=== PATIENT | male | born 1935 | race Caucasian/White ===

== ENCOUNTER 2019-01-13 19:16 | Inpatient (IN) | payer MEDICARE, OTHER ==
[2019-01-13] MEDS: VANCOMYCIN 1 GM (PMX) 250 ML IVPB (19:30)
[2019-01-13] MEDS: SODIUM CHLORIDE 0.9% 1L BAG IV* (19:40)
[2019-01-13] MEDS: ACETAMINOPHEN 325 MG TAB PO (19:41)
[2019-01-13] MEDS: CEFEPIME 2GM/50 ML (PMX) 50 ML IVPB (19:41)
[2019-01-13 19:44] LABS: ABNORMAL IP MESSAGE 1; HEMOGLOBIN 10.3 g/dl (14.0-18.0); MEAN CORPUSCULAR HEMOGLOBIN 26.9 pg (29.0-33.0); MEAN CORPUSCULAR HGB CONC 31.2 g/dl (32.0-37.0); MEAN CORPUSCULAR VOLUME 86.2 fl (82.0-101.0); MEAN PLATELET VOLUME 10.7 fl (7.4-10.4); PLATELET COUNT 395 10^3/UL (140-415); POSITIVE DIFF @See below; RED BLOOD COUNT 3.83 10^6/ul (4.70-6.10); RED CELL DISTRIBUTION WIDTH 19.2 % (11.5-14.5)
[2019-01-13 19:44] LABS: WHITE BLOOD COUNT 31.4 10^3/ul (4.8-10.8)
[2019-01-13 19:49] LABS: ADD MAN DIFF? YES
[2019-01-13 19:59] LABS: INR 0.92; PROTIME 12.5 Sec (11.9-14.9)
[2019-01-13 20:00] LABS: PARTIAL THROMBOPLASTIN TIME 33.3 Sec (23.0-35.0)
[2019-01-13 20:02] LABS: ALANINE AMINOTRANSFERASE 18 IU/L (13-69); ALBUMIN/GLOBULIN RATIO 0.86; ALKALINE PHOSPHATASE 145 IU/L (42-121); ANION GAP 12 (5-13); ASPARTATE AMINO TRANSFERASE 39 IU/L (15-46); BILIRUBIN,INDIRECT 0.3 mg/dl (0-1.1); BILIRUBIN,TOTAL 0.3 mg/dl (0.2-1.3); BLOOD UREA NITROGEN 27 mg/dl (7-20); CALCIUM 9.6 mg/dl (8.4-10.2); CARBON DIOXIDE 29 mmol/L (21-31); CHLORIDE 94 mmol/L (97-110); GLUCOSE 158 mg/dl (70-220); POTASSIUM 4.6 mmol/L (3.5-5.1); SODIUM 135 mmol/L (135-144); TOTAL PROTEIN 8.6 g/dl (6.1-8.1)
[2019-01-13 20:13] LABS: TROPONIN-I < 0.012 ng/ml (0.000-0.120)
[2019-01-13 20:31] LABS: ADD UMIC YES; UR ASCORBIC ACID 40 mg/dL (NEGATIVE); UR BACTERIA FEW /HPF (NONE SEEN); UR BILIRUBIN (Dip) NEGATIVE (NEGATIVE); UR BLOOD (Dip) NEGATIVE (NEGATIVE); UR BUDDING YEAST FEW /HPF (NONE SEEN); UR CLARITY CLEAR (CLEAR); UR COLOR YELLOW (YELLOW); UR GLUCOSE (Dip) NEGATIVE (NEGATIVE); UR KETONES (Dip) NEGATIVE (NEGATIVE); UR LEUKOCYTE ESTERASE (Dip) 1+ Leu/ul (NEGATIVE); UR NITRITE (Dip) NEGATIVE (NEGATIVE); UR RBC 4 /HPF (0-5); UR SPECIFIC GRAVITY (Dip) 1.009 (1.003-1.030); UR TOTAL PROTEIN (Dip) NEGATIVE (NEGATIVE); UR UROBILINOGEN (Dip) NEGATIVE (NEGATIVE); UR WBC 13 /HPF (0-5)
[2019-01-13 20:38] LABS: ANISOCYTOSIS 2+ (0-0); BAND NEUTROPHILS #M 3.1 10^3/ul (0.0-0.6); BAND NEUTROPHILS % (M) 10 % (0-4); EOSINOPHILS % (M) 11 % (0-7); LYMPHOCYTES #M 1.5 10^3/ul (0.8-2.9); LYMPHOCYTES % (M) 5 % (15-51); MICROCYTOSIS 2+ (0-0); MONOCYTE #M 0.3 10^3/ul (0.3-0.9); MONOCYTES % (M) 1 % (0-11); PLATELET ESTIMATE NORMAL; POLYCHROMASIA 1+ (0-0); SEG NEUT #M 23.9 10^3/ul (1.6-7.5); SEGMENTED NEUTROPHILS (M) % 73 % (39-77); SMUDGE%M 36 % (0-0)
[2019-01-13] MEDS ORDERED: ACETAMINOPHEN 325 MG TAB PO (22:00)
[2019-01-13] MEDS ORDERED: ONDANSETRON 4 MG INJ IV (22:00)
[2019-01-13 22:16] LABS: LACTIC ACID 1.5 mmol/L (0.5-2.0)
[2019-01-14] MEDS ORDERED: GLUCAGON 1 MG INJ IM (00:30)
[2019-01-14] MEDS ORDERED: GLUCOSE GEL 15 GRAM TUBE BUCCAL (00:30)
[2019-01-14] MEDS ORDERED: GLUCOSE GEL 15 GRAM TUBE PO ×2 (00:30)
[2019-01-14] MEDS ORDERED: PENDING SANTYL ORDER FOR WOUND CARE XX (00:30)
[2019-01-14] MEDS ORDERED: DEXTROSE 50% 50 ML SYRINGE IV ×2 (00:30)
[2019-01-14] MEDS: ACCU-CHEK XX (01:10)
[2019-01-14 01:36] LABS: LACTIC ACID 1.5 mmol/L (0.5-2.0)
[2019-01-14] MEDS: INSULIN ASPART [NOVOLOG] 3 ML PEN SC ×4 (06:00→18:00)
[2019-01-14] MEDS ORDERED: VANCOMYCIN IV PER PHARMACY XX (09:30)
[2019-01-14] MEDS: VANCOMYCIN 1 GM 250 ML IVPB (12:30)
[2019-01-14] MEDS: DUTASTERIDE 0.5 MG CAP PO (12:31)
[2019-01-14] MEDS: MULTIVITAMINS THERAPEUTIC TAB PO (12:31)
[2019-01-14] MEDS: DOCUSATE SODIUM 250 MG CAP PO ×2 (12:31→22:28)
[2019-01-14] MEDS: BACLOFEN 10 MG TAB PO ×2 (12:31→22:28)
[2019-01-14] MEDS: LANSOPRAZOLE 30 MG CAP PO ×2 (12:31→22:28)
[2019-01-14] MEDS: LEVETIRACETAM 500 MG TAB PO ×2 (12:31→22:28)
[2019-01-14] MEDS: AMLODIPINE 5 MG TAB PO (12:32)
[2019-01-14] MEDS: ASPIRIN (EC) 81 MG TAB PO (12:32)
[2019-01-14] MEDS: CEFTAZIDIME 1GM/50 ML (PMX) 50 ML IVPB ×2 (15:20→22:29)
[2019-01-15] MEDS: VANCOMYCIN 500 MG (PMX) 100 ML IVPB ×2 (01:14→12:15)
[2019-01-15] MEDS: ACCU-CHEK XX (02:00)
[2019-01-15] MEDS: INSULIN ASPART [NOVOLOG] 3 ML PEN SC ×4 (06:00→17:07)
[2019-01-15] MEDS: CEFTAZIDIME 1GM/50 ML (PMX) 50 ML IVPB ×2 (06:14→13:40)
[2019-01-15 07:11] LABS: ADD MAN DIFF? NO
[2019-01-15 07:16] LABS: HEMATOCRIT 29.4 % (42.0-52.0); HEMOGLOBIN 9.1 g/dl (14.0-18.0); MEAN CORPUSCULAR HEMOGLOBIN 26.3 pg (29.0-33.0); RED BLOOD COUNT 3.46 10^6/ul (4.70-6.10); RED CELL DISTRIBUTION WIDTH 18.9 % (11.5-14.5)
[2019-01-15 07:16] LABS: WHITE BLOOD COUNT 8.7 10^3/ul (4.8-10.8)
[2019-01-15 07:17] LABS: ABNORMAL IP MESSAGE 1; BASOPHILS % 0.5 % (0.0-2.0); EOSINOPHILS # 1.7 10^3/ul (0.0-0.5); EOSINOPHILS % 19.4 % (0.0-7.0); LYMPHOCYTES # 0.5 10^3/ul (0.8-2.9); LYMPHOCYTES % 5.8 % (15.0-51.0); MEAN PLATELET VOLUME 10.9 fl (7.4-10.4); MONOCYTE # 0.9 10^3/ul (0.3-0.9); MONOCYTES % 10.8 % (0.0-11.0); NEUTROPHIL # 5.5 10^3/ul (1.6-7.5); NEUTROPHILS % 62.8 % (39.0-77.0); PLATELET COUNT 322 10^3/UL (140-415); POSITIVE DIFF @See below
[2019-01-15 07:52] LABS: CHOLESTEROL 142 mg/dl (100-200)
[2019-01-15 07:52] LABS: CHOL/HDL RATIO 5.6 RATIO; HDL CHOLESTEROL 25 mg/dl (31-75); LDL CHOLESTEROL,CALCULATED 51 mg/dl; TRIGLYCERIDES 330 mg/dl (0-149)
[2019-01-15 07:54] LABS: ANION GAP 8 (5-13); BLOOD UREA NITROGEN 20 mg/dl (7-20); CALCIUM 8.7 mg/dl (8.4-10.2); CARBON DIOXIDE 30 mmol/L (21-31); CHLORIDE 100 mmol/L (97-110); CREATININE 0.32 mg/dl (0.61-1.24); GLUCOSE 149 mg/dl (70-220); MAGNESIUM 2.3 mg/dl (1.7-2.5); PHOSPHORUS 2.2 mg/dl (2.5-4.9); POTASSIUM 3.7 mmol/L (3.5-5.1); SODIUM 138 mmol/L (135-144)
[2019-01-15 08:04] LABS: B-TYPE NATRIURETIC PEPTIDE 2820 PG/ML (0-450)
[2019-01-15] MEDS: DUTASTERIDE 0.5 MG CAP PO (09:00)
[2019-01-15] MEDS: ASPIRIN (EC) 81 MG TAB PO (09:10)
[2019-01-15] MEDS: DOCUSATE SODIUM 250 MG CAP PO ×2 (09:10→22:19)
[2019-01-15] MEDS: BACLOFEN 10 MG TAB PO ×2 (09:10→22:20)
[2019-01-15] MEDS: LEVETIRACETAM 500 MG TAB PO ×2 (09:10→22:19)
[2019-01-15] MEDS: MULTIVITAMINS THERAPEUTIC TAB PO (09:10)
[2019-01-15] MEDS: LANSOPRAZOLE 30 MG CAP PO ×2 (09:10→22:20)
[2019-01-15] MEDS: AMLODIPINE 5 MG TAB PO (09:10)
[2019-01-15] MEDS: NEUTRA-PHOS 250 MG PACKET PO (11:36)
[2019-01-15] MEDS: BALSAM PERU/CASTOR OIL 60 GM TUBE TOP ×2 (13:46→22:20)
[2019-01-15] MEDS: FLUCONAZOLE 100 MG TAB PO (15:41)
[2019-01-16] MEDS: CEFTAZIDIME 1GM/50 ML (PMX) 50 ML IVPB ×4 (01:03→21:13)
[2019-01-16 01:16] LABS: VANCOMYCIN,TROUGH 15.9 ug/ml (10.0-20.0)
[2019-01-16] MEDS: ACCU-CHEK XX (02:00)
[2019-01-16] MEDS: VANCOMYCIN 500 MG (PMX) 100 ML IVPB ×2 (02:57→12:32)
[2019-01-16] MEDS: INSULIN ASPART [NOVOLOG] 3 ML PEN SC ×4 (06:00→17:30)
[2019-01-16] MEDS: DOCUSATE SODIUM 250 MG CAP PO ×2 (08:40→21:12)
[2019-01-16] MEDS: FLUCONAZOLE 100 MG TAB PO (08:41)
[2019-01-16] MEDS: BACLOFEN 10 MG TAB PO ×2 (08:41→21:13)
[2019-01-16] MEDS: DUTASTERIDE 0.5 MG CAP PO (08:41)
[2019-01-16] MEDS: AMLODIPINE 5 MG TAB PO (08:42)
[2019-01-16] MEDS: BALSAM PERU/CASTOR OIL 60 GM TUBE TOP ×2 (08:42→21:13)
[2019-01-16] MEDS: LANSOPRAZOLE 30 MG CAP PO ×2 (08:42→21:13)
[2019-01-16] MEDS: ASPIRIN (EC) 81 MG TAB PO (08:42)
[2019-01-16] MEDS: LEVETIRACETAM 500 MG TAB PO ×2 (08:42→21:12)
[2019-01-16] MEDS: MULTIVITAMINS THERAPEUTIC TAB PO (08:42)
[2019-01-16] MEDS: LISINOPRIL 20 MG TAB GTB (08:42)
[2019-01-16 08:44] LABS: ADD MAN DIFF? NO
[2019-01-16 08:46] LABS: ABNORMAL IP MESSAGE 1; BASOPHILS % 0.4 % (0.0-2.0); EOSINOPHILS # 1.8 10^3/ul (0.0-0.5); EOSINOPHILS % 17.2 % (0.0-7.0); HEMATOCRIT 30.4 % (42.0-52.0); HEMOGLOBIN 9.5 g/dl (14.0-18.0); LYMPHOCYTES # 0.5 10^3/ul (0.8-2.9); MEAN CORPUSCULAR HEMOGLOBIN 26.4 pg (29.0-33.0); MEAN CORPUSCULAR HGB CONC 31.3 g/dl (32.0-37.0); MEAN CORPUSCULAR VOLUME 84.4 fl (82.0-101.0); MEAN PLATELET VOLUME 11.3 fl (7.4-10.4); MONOCYTE # 1.1 10^3/ul (0.3-0.9); MONOCYTES % 10.7 % (0.0-11.0); NEUTROPHIL # 6.8 10^3/ul (1.6-7.5); NEUTROPHILS % 66.3 % (39.0-77.0); PLATELET COUNT 342 10^3/UL (140-415); POSITIVE DIFF @See below; RED CELL DISTRIBUTION WIDTH 18.7 % (11.5-14.5)
[2019-01-16 08:46] LABS: WHITE BLOOD COUNT 10.2 10^3/ul (4.8-10.8)
[2019-01-16 09:14] LABS: ANION GAP 8 (5-13); BLOOD UREA NITROGEN 18 mg/dl (7-20); CALCIUM 9.1 mg/dl (8.4-10.2); CARBON DIOXIDE 29 mmol/L (21-31); CHLORIDE 102 mmol/L (97-110); CREATININE 0.34 mg/dl (0.61-1.24); GLUCOSE 142 mg/dl (70-220); MAGNESIUM 2.2 mg/dl (1.7-2.5); PHOSPHORUS 2.3 mg/dl (2.5-4.9); POTASSIUM 3.7 mmol/L (3.5-5.1); SODIUM 139 mmol/L (135-144)
== END 2019-01-17 00:10 | DRG 871 ==
LOC: E/R 19:16 → TEL 22:45
DX: A41.9 Sepsis, unspecified organism (principal); L89.324 Pressure ulcer of left buttock, stage 4; L89.154 Pressure ulcer of sacral region, stage 4; J96.21 Acute and chronic respiratory failure with hypoxia; G92 Toxic encephalopathy; J69.0 Pneumonitis due to inhalation of food and vomit; L03.115 Cellulitis of right lower limb; N39.0 Urinary tract infection, site not specified; E11.9 Type 2 diabetes mellitus without complications; D64.9 Anemia, unspecified; Z93.1 Gastrostomy status; R13.10 Dysphagia, unspecified; F03.90 Unspecified dementia, unspecified severity, without behavioral disturbance, psychotic disturbance, mood disturbance, and anxiety; G40.909 Epilepsy, unspecified, not intractable, without status epilepticus; N40.0 Benign prostatic hyperplasia without lower urinary tract symptoms; I10 Essential (primary) hypertension; M62.838 Other muscle spasm; Z79.4 Long term (current) use of insulin; Z79.82 Long term (current) use of aspirin; Z86.73 Personal history of transient ischemic attack (TIA), and cerebral infarction without residual deficits
CPT/HCPCS: 36415; 70140; 71045; 80048; 80053; 80061; 80202; 81001; 82962; 83605; 83735; 83880; 84100; 84484; 85025; 85610; 85730; 87040-91; 87081; 87086; 87400; 93005; 93306; 96374; 96375; 99291-25

== ENCOUNTER 2019-05-28 09:51 | Inpatient (IN) | payer MEDICARE, OTHER ==
[2019-05-28 10:07] LABS: ADD MAN DIFF? NO
[2019-05-28 10:08] LABS: BASOPHIL # 0.1 10^3/ul (0.0-0.1); BASOPHILS % 0.6 % (0.0-2.0); EOSINOPHILS # 0.6 10^3/ul (0.0-0.5); HEMATOCRIT 33.5 % (42.0-52.0); HEMOGLOBIN 10.2 g/dl (14.0-18.0); LYMPHOCYTES # 0.7 10^3/ul (0.8-2.9); LYMPHOCYTES % 4.9 % (15.0-51.0); MEAN CORPUSCULAR HGB CONC 30.4 g/dl (32.0-37.0); MEAN PLATELET VOLUME 11.3 fl (7.4-10.4); MONOCYTE # 1.1 10^3/ul (0.3-0.9); NEUTROPHIL # 11.3 10^3/ul (1.6-7.5); NEUTROPHILS % 81.1 % (39.0-77.0); PLATELET COUNT 321 10^3/UL (140-415); RED BLOOD COUNT 3.64 10^6/ul (4.70-6.10); RED CELL DISTRIBUTION WIDTH 18.3 % (11.5-14.5)
[2019-05-28 10:08] LABS: WHITE BLOOD COUNT 13.9 10^3/ul (4.8-10.8)
[2019-05-28 10:25] LABS: ALANINE AMINOTRANSFERASE 37 IU/L (13-69); ALBUMIN 3.3 g/dl (3.3-4.9); ALBUMIN/GLOBULIN RATIO 0.82; ALKALINE PHOSPHATASE 111 IU/L (42-121); ANION GAP 6 (5-13); ASPARTATE AMINO TRANSFERASE 46 IU/L (15-46); BILIRUBIN,INDIRECT 0.4 mg/dl (0-1.1); BILIRUBIN,TOTAL 0.4 mg/dl (0.2-1.3); BLOOD UREA NITROGEN 53 mg/dl (7-20); CALCIUM 8.8 mg/dl (8.4-10.2); CARBON DIOXIDE 28 mmol/L (21-31); CHLORIDE 102 mmol/L (97-110); GLUCOSE 187 mg/dl (70-220); POTASSIUM 4.6 mmol/L (3.5-5.1); SODIUM 136 mmol/L (135-144); TOTAL PROTEIN 7.3 g/dl (6.1-8.1)
[2019-05-28 10:27] LABS: INR 0.97
[2019-05-28] MEDS: SODIUM CHLORIDE 0.9% 1L BAG IV* (10:31)
[2019-05-28] MEDS: CEFEPIME 2GM/50 ML (PMX) 50 ML IVPB (10:31)
[2019-05-28 10:32] LABS: PARTIAL THROMBOPLASTIN TIME 31.1 Sec (23.0-35.0)
[2019-05-28 10:36] LABS: TROPONIN-I < 0.012 ng/ml (0.000-0.120)
[2019-05-28] MEDS ORDERED: ACETAMINOPHEN 325 MG TAB PO (11:00)
[2019-05-28] MEDS ORDERED: ONDANSETRON 4 MG INJ IV (11:00)
[2019-05-28] MEDS: VANCOMYCIN 1 GM (PMX) 250 ML IVPB (11:32)
[2019-05-28 11:56] LABS: ADD UMIC YES; UR ASCORBIC ACID 40 mg/dL (NEGATIVE); UR BACTERIA FEW /HPF (NONE SEEN); UR BILIRUBIN (Dip) NEGATIVE (NEGATIVE); UR BLOOD (Dip) NEGATIVE (NEGATIVE); UR CLARITY SLIGHTLY CLOUDY (CLEAR); UR COLOR YELLOW (YELLOW); UR GLUCOSE (Dip) NEGATIVE (NEGATIVE); UR KETONES (Dip) NEGATIVE (NEGATIVE); UR LEUKOCYTE ESTERASE (Dip) NEGATIVE Leu/ul (NEGATIVE); UR MUCUS FEW /HPF (NONE SEEN); UR NITRITE (Dip) NEGATIVE (NEGATIVE); UR RBC 3 /HPF (0-5); UR SPECIFIC GRAVITY (Dip) 1.013 (1.003-1.030); UR SQUAMOUS EPITHELIAL CELL FEW /HPF (FEW); UR TOTAL PROTEIN (Dip) 1+ mg/dl (NEGATIVE); UR UROBILINOGEN (Dip) NEGATIVE (NEGATIVE); UR WBC 1 /HPF (0-5)
[2019-05-28 12:07] LABS: LACTIC ACID 1.5 mmol/L (0.5-2.0)
[2019-05-28] MEDS: PILOCARPINE 5 MG TAB PO (16:57)
[2019-05-28] MEDS: CLOBETASOL 0.05% 15 GM OINT TOP ×3 (16:58→22:55)
[2019-05-28] MEDS ORDERED: MEMANTINE 5 MG TAB PO (21:00)
[2019-05-28] MEDS ORDERED: METOPROLOL 50 MG TAB PO (21:00)
[2019-05-28] MEDS ORDERED: BACLOFEN 10 MG TAB PO (21:00)
[2019-05-28] MEDS ORDERED: RANITIDINE 150 MG TAB PO (21:00)
[2019-05-28] MEDS ORDERED: LEVETIRACETAM 500 MG TAB PO (21:00)
[2019-05-28] MEDS ORDERED: DOCUSATE SODIUM 250 MG CAP PO (21:00)
[2019-05-28] MEDS ORDERED: AMLODIPINE 5 MG TAB PO (21:00)
[2019-05-28] MEDS ORDERED: LEVETIRACETAM 500 MG TAB GTB (21:00)
[2019-05-28 21:05] LABS: LACTIC ACID 2.2 mmol/L (0.5-2.0)
[2019-05-28] MEDS: DEXTROSE 5%-0.45% NACL 1,000 ML IV (21:17)
[2019-05-28] MEDS: DOCUSATE SODIUM 10 MG/ML (10ML CUP) GTB (22:44)
[2019-05-28] MEDS: LEVETIRACETAM (100 MG/ML) 5ML CUP GTB (22:45)
[2019-05-28] MEDS: BACLOFEN 10 MG TAB GTB (22:46)
[2019-05-28] MEDS: MEMANTINE 5 MG TAB GTB (22:46)
[2019-05-28] MEDS: PILOCARPINE 5 MG TAB GTB (22:47)
[2019-05-28] MEDS: RANITIDINE 150 MG TAB GTB (22:47)
[2019-05-28] MEDS: TAMSULOSIN (SR) 0.4 MG CAP PO (22:48)
[2019-05-28] MEDS: AMLODIPINE 5 MG TAB GTB (22:49)
[2019-05-28] MEDS: METOPROLOL 50 MG TAB GTB (22:50)
[2019-05-28] MEDS: COLLAGENASE 30 GM TUBE TOP (22:55)
[2019-05-28] MEDS: NYSTATIN 15 GM POWDER BTL TOP (22:55)
[2019-05-28] MEDS: SOD CHLORIDE 0.9% 500 ML IV (22:59)
[2019-05-29] MEDS ORDERED: VANCOMYCIN IV PER PHARMACY XX (07:00)
[2019-05-29 08:21] LABS: ADD MAN DIFF? NO
[2019-05-29 08:31] LABS: BASOPHILS % 0.2 % (0.0-2.0); EOSINOPHILS % 0.1 % (0.0-7.0); HEMATOCRIT 23.2 % (42.0-52.0); LYMPHOCYTES # 0.7 10^3/ul (0.8-2.9); LYMPHOCYTES % 5.6 % (15.0-51.0); MEAN CORPUSCULAR HEMOGLOBIN 27.9 pg (29.0-33.0); MEAN CORPUSCULAR HGB CONC 30.2 g/dl (32.0-37.0); MEAN CORPUSCULAR VOLUME 92.4 fl (82.0-101.0); MEAN PLATELET VOLUME 12.5 fl (7.4-10.4); MONOCYTE # 1.3 10^3/ul (0.3-0.9); MONOCYTES % 10.4 % (0.0-11.0); NEUTROPHIL # 10.4 10^3/ul (1.6-7.5); NEUTROPHILS % 82.7 % (39.0-77.0); NUCLEATED RED BLOOD CELLS% 0.3 /100WBC (0.0-0.0); PLATELET COUNT 260 10^3/UL (140-415); RED BLOOD COUNT 2.51 10^6/ul (4.70-6.10); RED CELL DISTRIBUTION WIDTH 18.6 % (11.5-14.5)
[2019-05-29 08:31] LABS: WHITE BLOOD COUNT 12.5 10^3/ul (4.8-10.8)
[2019-05-29 08:55] LABS: LACTIC ACID 2.1 mmol/L (0.5-2.0)
[2019-05-29] MEDS: DUTASTERIDE 0.5 MG CAP PO (09:00)
[2019-05-29] MEDS ORDERED: POLYETHYLENE GLYCOL 3350 119 GM POWDER PO (09:00)
[2019-05-29] MEDS ORDERED: TAMSULOSIN (SR) 0.4 MG CAP PO (09:00)
[2019-05-29 09:04] LABS: ANION GAP 9 (5-13); BLOOD UREA NITROGEN 66 mg/dl (7-20); CALCIUM 9.2 mg/dl (8.4-10.2); CARBON DIOXIDE 25 mmol/L (21-31); CHLORIDE 110 mmol/L (97-110); CREATININE 0.42 mg/dl (0.61-1.24); GLUCOSE 223 mg/dl (70-220); MAGNESIUM 2.4 mg/dl (1.7-2.5); PHOSPHORUS 2.4 mg/dl (2.5-4.9); SODIUM 144 mmol/L (135-144)
[2019-05-29 09:19] LABS: POTASSIUM 3.9 mmol/L (3.5-5.1)
[2019-05-29] MEDS: DEXTROSE 5%-0.45% NACL 1,000 ML IV (09:20)
[2019-05-29] MEDS: DOCUSATE SODIUM 10 MG/ML (10ML CUP) GTB ×2 (09:24→21:00)
[2019-05-29] MEDS: LEVETIRACETAM (100 MG/ML) 5ML CUP GTB ×2 (09:24→22:09)
[2019-05-29] MEDS: PILOCARPINE 5 MG TAB GTB ×3 (09:25→22:09)
[2019-05-29] MEDS: POLYETHYLENE GLYCOL 17 GM PACKET GTB (09:25)
[2019-05-29] MEDS: LISINOPRIL 20 MG TAB GTB (09:26)
[2019-05-29] MEDS: AMLODIPINE 5 MG TAB GTB ×2 (09:27→22:14)
[2019-05-29] MEDS: METOPROLOL 50 MG TAB GTB ×2 (09:27→22:15)
[2019-05-29] MEDS: RANITIDINE 150 MG TAB GTB ×2 (09:27→22:09)
[2019-05-29] MEDS: CLOBETASOL 0.05% 15 GM OINT TOP ×4 (09:28→22:18)
[2019-05-29] MEDS: BACLOFEN 10 MG TAB GTB ×2 (09:29→22:10)
[2019-05-29] MEDS: SILVER SULFADIAZINE 1% 25 GM CR TOP (09:29)
[2019-05-29] MEDS: MEMANTINE 5 MG TAB GTB ×2 (09:29→22:09)
[2019-05-29] MEDS: COLLAGENASE 30 GM TUBE TOP ×2 (09:29→22:17)
[2019-05-29] MEDS: NYSTATIN 15 GM POWDER BTL TOP ×2 (09:30→22:17)
[2019-05-29] MEDS: VANCOMYCIN 1.25 GM/NS 250 ML 250 ML IVPB (09:52)
[2019-05-29] MEDS: SOD CHLORIDE 0.9% 250 ML IV (10:32)
[2019-05-29] MEDS: CEFEPIME 1GM/50 ML (PMX) 50 ML IVPB (13:25)
[2019-05-29 14:15] LABS: ADD UMIC NO; UR ASCORBIC ACID 40 mg/dL (NEGATIVE); UR BILIRUBIN (Dip) NEGATIVE (NEGATIVE); UR BLOOD (Dip) NEGATIVE (NEGATIVE); UR CLARITY CLEAR (CLEAR); UR COLOR YELLOW (YELLOW); UR GLUCOSE (Dip) 1+ mg/dL (NEGATIVE); UR KETONES (Dip) NEGATIVE (NEGATIVE); UR LEUKOCYTE ESTERASE (Dip) NEGATIVE Leu/ul (NEGATIVE); UR NITRITE (Dip) NEGATIVE (NEGATIVE); UR SPECIFIC GRAVITY (Dip) 1.014 (1.003-1.030); UR TOTAL PROTEIN (Dip) NEGATIVE (NEGATIVE); UR UROBILINOGEN (Dip) NEGATIVE (NEGATIVE)
[2019-05-29 14:21] LABS: SODIUM,URINE RANDOM 28 mmol/L (30-90)
[2019-05-29 14:21] LABS: CREATININE,URINE RANDOM 14.11 mg/dl (20-370)
[2019-05-29 15:32] LABS: HEMATOCRIT 21.2 % (42.0-52.0); RETICULOCYTE COUNT % 6.4 % (0.5-1.5)
[2019-05-29 15:47] LABS: HEMOGLOBIN 6.2 g/dl (14.0-18.0)
[2019-05-29 16:02] LABS: LACTIC ACID 1.7 mmol/L (0.5-2.0)
[2019-05-29 16:34] LABS: FERRITIN 34.1 ng/ml (11.1-264.0)
[2019-05-29] MEDS: TAMSULOSIN (SR) 0.4 MG CAP PO (22:09)
[2019-05-30] MEDS: CEFEPIME 1GM/50 ML (PMX) 50 ML IVPB ×3 (00:43→21:26)
[2019-05-30 02:14] LABS: IMMEDIATE SPIN CROSSMATCH 1 2
[2019-05-30 07:21] LABS: ADD MAN DIFF? NO
[2019-05-30 07:27] LABS: WHITE BLOOD COUNT 19.7 10^3/ul (4.8-10.8)
[2019-05-30 07:27] LABS: ABNORMAL IP MESSAGE 1; BASOPHIL # 0.1 10^3/ul (0.0-0.1); BASOPHILS % 0.3 % (0.0-2.0); EOSINOPHILS # 0.1 10^3/ul (0.0-0.5); EOSINOPHILS % 0.5 % (0.0-7.0); HEMATOCRIT 29.9 % (42.0-52.0); HEMOGLOBIN 9.2 g/dl (14.0-18.0); LYMPHOCYTES # 0.4 10^3/ul (0.8-2.9); MEAN CORPUSCULAR HEMOGLOBIN 29.1 pg (29.0-33.0); MEAN CORPUSCULAR HGB CONC 30.8 g/dl (32.0-37.0); MEAN CORPUSCULAR VOLUME 94.6 fl (82.0-101.0); MEAN PLATELET VOLUME 11.5 fl (7.4-10.4); MONOCYTE # 0.8 10^3/ul (0.3-0.9); MONOCYTES % 4.1 % (0.0-11.0); NEUTROPHIL # 18.2 10^3/ul (1.6-7.5); NEUTROPHILS % 92.2 % (39.0-77.0); NUCLEATED RED BLOOD CELLS% 0.2 /100WBC (0.0-0.0); PLATELET COUNT 233 10^3/UL (140-415); POSITIVE DIFF @See below; RED BLOOD COUNT 3.16 10^6/ul (4.70-6.10); RED CELL DISTRIBUTION WIDTH 18.4 % (11.5-14.5)
[2019-05-30 07:42] LABS: ANION GAP 4 (5-13); BLOOD UREA NITROGEN 48 mg/dl (7-20); CALCIUM 9.2 mg/dl (8.4-10.2); CARBON DIOXIDE 29 mmol/L (21-31); CHLORIDE 116 mmol/L (97-110); CREATININE 0.34 mg/dl (0.61-1.24); GLUCOSE 189 mg/dl (70-220); MAGNESIUM 2.5 mg/dl (1.7-2.5); PHOSPHORUS 1.9 mg/dl (2.5-4.9); POTASSIUM 3.7 mmol/L (3.5-5.1); SODIUM 149 mmol/L (135-144)
[2019-05-30] MEDS: DOCUSATE SODIUM 10 MG/ML (10ML CUP) GTB ×2 (08:15→21:26)
[2019-05-30] MEDS: BACLOFEN 10 MG TAB GTB ×2 (08:16→21:27)
[2019-05-30] MEDS: LISINOPRIL 20 MG TAB GTB (08:16)
[2019-05-30] MEDS: RANITIDINE 150 MG TAB GTB ×2 (08:16→21:27)
[2019-05-30] MEDS: MEMANTINE 5 MG TAB GTB ×2 (08:16→21:27)
[2019-05-30] MEDS: METOPROLOL 50 MG TAB GTB ×2 (08:17→21:28)
[2019-05-30] MEDS: PILOCARPINE 5 MG TAB GTB ×3 (08:17→21:27)
[2019-05-30] MEDS: AMLODIPINE 5 MG TAB GTB ×2 (08:17→21:28)
[2019-05-30] MEDS: VANCOMYCIN 1.25 GM/NS 250 ML 250 ML IVPB (08:18)
[2019-05-30] MEDS: POLYETHYLENE GLYCOL 17 GM PACKET GTB (08:18)
[2019-05-30] MEDS: LEVETIRACETAM (100 MG/ML) 5ML CUP GTB ×2 (08:18→21:30)
[2019-05-30] MEDS: NEUTRA-PHOS 250 MG PACKET GTB ×2 (09:39→21:27)
[2019-05-30] MEDS: ZINC SULFATE 220 MG CAP GTB (09:39)
[2019-05-30] MEDS: ENOXAPARIN 30 MG/0.3 ML SYG SC (09:43)
[2019-05-30] MEDS: NYSTATIN 15 GM POWDER BTL TOP ×2 (09:50→21:32)
[2019-05-30] MEDS: SILVER SULFADIAZINE 1% 25 GM CR TOP (09:51)
[2019-05-30] MEDS: COLLAGENASE 30 GM TUBE TOP ×2 (09:51→21:32)
[2019-05-30] MEDS: CLOBETASOL 0.05% 15 GM OINT TOP ×4 (09:51→21:32)
[2019-05-30 10:28] LABS: OCCULT BLOOD STOOL NEGATIVE (NEGATIVE)
[2019-05-30] MEDS: FINASTERIDE 5 MG TAB PO (13:17)
[2019-05-30 16:08] LABS: CREATININE, RANDOM URINE 16 mg/dL (20-320); MICROALBUMIN 7.6 mg/dL; MICROALBUMIN/CREATININE RATIO 475 (<30)
[2019-05-30] MEDS: TAMSULOSIN (SR) 0.4 MG CAP PO (21:27)
[2019-05-31 08:10] LABS: ADD MAN DIFF? NO
[2019-05-31 08:15] LABS: WHITE BLOOD COUNT 10.6 10^3/ul (4.8-10.8)
[2019-05-31 08:15] LABS: ABNORMAL IP MESSAGE 1; BASOPHILS % 0.4 % (0.0-2.0); EOSINOPHILS # 0.3 10^3/ul (0.0-0.5); HEMOGLOBIN 8.4 g/dl (14.0-18.0); LYMPHOCYTES # 0.6 10^3/ul (0.8-2.9); LYMPHOCYTES % 5.6 % (15.0-51.0); MEAN CORPUSCULAR VOLUME 96.6 fl (82.0-101.0); MEAN PLATELET VOLUME 11.5 fl (7.4-10.4); MONOCYTE # 1.2 10^3/ul (0.3-0.9); MONOCYTES % 11.7 % (0.0-11.0); NEUTROPHIL # 8.3 10^3/ul (1.6-7.5); NEUTROPHILS % 78.7 % (39.0-77.0); NUCLEATED RED BLOOD CELLS% 0.3 /100WBC (0.0-0.0); PLATELET COUNT 235 10^3/UL (140-415); POSITIVE DIFF @See below; RED CELL DISTRIBUTION WIDTH 18.8 % (11.5-14.5)
[2019-05-31 08:54] LABS: VANCOMYCIN,TROUGH 12.1 ug/ml (10.0-20.0)
[2019-05-31 08:55] LABS: ANION GAP 3 (5-13); BLOOD UREA NITROGEN 40 mg/dl (7-20); CALCIUM 8.7 mg/dl (8.4-10.2); CARBON DIOXIDE 32 mmol/L (21-31); CHLORIDE 111 mmol/L (97-110); GLUCOSE 174 mg/dl (70-220); MAGNESIUM 2.6 mg/dl (1.7-2.5); PHOSPHORUS 1.2 mg/dl (2.5-4.9); POTASSIUM 3.4 mmol/L (3.5-5.1); SODIUM 146 mmol/L (135-144)
[2019-05-31] MEDS: CEFEPIME 1GM/50 ML (PMX) 50 ML IVPB ×2 (09:01→21:21)
[2019-05-31] MEDS: LISINOPRIL 20 MG TAB GTB (09:04)
[2019-05-31] MEDS: PILOCARPINE 5 MG TAB GTB ×3 (09:04→21:24)
[2019-05-31] MEDS: ZINC SULFATE 220 MG CAP GTB (09:04)
[2019-05-31] MEDS: METOPROLOL 50 MG TAB GTB ×2 (09:04→21:25)
[2019-05-31] MEDS: RANITIDINE 150 MG TAB GTB ×2 (09:04→21:25)
[2019-05-31] MEDS: MEMANTINE 5 MG TAB GTB ×2 (09:04→21:25)
[2019-05-31] MEDS: LEVETIRACETAM (100 MG/ML) 5ML CUP GTB ×2 (09:05→21:24)
[2019-05-31] MEDS: DOCUSATE SODIUM 10 MG/ML (10ML CUP) GTB ×2 (09:05→21:24)
[2019-05-31] MEDS: BACLOFEN 10 MG TAB GTB ×2 (09:05→21:25)
[2019-05-31] MEDS: AMLODIPINE 5 MG TAB GTB ×2 (09:05→21:26)
[2019-05-31] MEDS: POLYETHYLENE GLYCOL 17 GM PACKET GTB (09:05)
[2019-05-31] MEDS: NEUTRA-PHOS 250 MG PACKET GTB ×2 (09:05→21:25)
[2019-05-31] MEDS: CLOBETASOL 0.05% 15 GM OINT TOP ×4 (09:06→21:22)
[2019-05-31] MEDS: NYSTATIN 15 GM POWDER BTL TOP ×2 (09:06→21:22)
[2019-05-31] MEDS: SILVER SULFADIAZINE 1% 25 GM CR TOP (09:06)
[2019-05-31] MEDS: COLLAGENASE 30 GM TUBE TOP ×2 (09:07→21:22)
[2019-05-31] MEDS: ENOXAPARIN 30 MG/0.3 ML SYG SC (09:08)
[2019-05-31] MEDS: VANCOMYCIN 1.25 GM/NS 250 ML 250 ML IVPB (09:27)
[2019-05-31] MEDS: FINASTERIDE 5 MG TAB PO (09:35)
[2019-05-31] MEDS: TAMSULOSIN (SR) 0.4 MG CAP PO (21:25)
[2019-06-01] MEDS: CEFEPIME 1GM/50 ML (PMX) 50 ML IVPB ×2 (08:19→21:38)
[2019-06-01] MEDS: POLYETHYLENE GLYCOL 17 GM PACKET GTB (08:22)
[2019-06-01] MEDS: NEUTRA-PHOS 250 MG PACKET GTB ×2 (08:23→21:35)
[2019-06-01] MEDS: DOCUSATE SODIUM 10 MG/ML (10ML CUP) GTB ×2 (08:23→21:35)
[2019-06-01] MEDS: FINASTERIDE 5 MG TAB PO (08:23)
[2019-06-01] MEDS: LEVETIRACETAM (100 MG/ML) 5ML CUP GTB ×2 (08:23→21:35)
[2019-06-01] MEDS: PILOCARPINE 5 MG TAB GTB ×3 (08:24→21:35)
[2019-06-01] MEDS: METOPROLOL 50 MG TAB GTB ×2 (08:24→21:43)
[2019-06-01] MEDS: AMLODIPINE 5 MG TAB GTB ×2 (08:24→21:43)
[2019-06-01] MEDS: LISINOPRIL 20 MG TAB GTB (08:24)
[2019-06-01] MEDS: RANITIDINE 150 MG TAB GTB ×2 (08:24→21:35)
[2019-06-01] MEDS: ZINC SULFATE 220 MG CAP GTB (08:24)
[2019-06-01] MEDS: BACLOFEN 10 MG TAB GTB ×2 (08:25→21:35)
[2019-06-01] MEDS: MEMANTINE 5 MG TAB GTB ×2 (08:25→21:36)
[2019-06-01] MEDS: SILVER SULFADIAZINE 1% 25 GM CR TOP (08:26)
[2019-06-01] MEDS: NYSTATIN 15 GM POWDER BTL TOP ×2 (08:26→21:36)
[2019-06-01] MEDS: CLOBETASOL 0.05% 15 GM OINT TOP ×4 (08:26→21:36)
[2019-06-01] MEDS: ENOXAPARIN 30 MG/0.3 ML SYG SC (08:34)
[2019-06-01] MEDS: VANCOMYCIN 1.25 GM/NS 250 ML 250 ML IVPB (08:35)
[2019-06-01 09:13] LABS: ADD MAN DIFF? NO
[2019-06-01 09:17] LABS: BASOPHILS % 0.4 % (0.0-2.0); EOSINOPHILS # 0.5 10^3/ul (0.0-0.5); EOSINOPHILS % 6.3 % (0.0-7.0); HEMATOCRIT 29.7 % (42.0-52.0); HEMOGLOBIN 8.9 g/dl (14.0-18.0); LYMPHOCYTES # 0.7 10^3/ul (0.8-2.9); MEAN CORPUSCULAR HEMOGLOBIN 28.9 pg (29.0-33.0); MEAN CORPUSCULAR VOLUME 96.4 fl (82.0-101.0); MEAN PLATELET VOLUME 11.9 fl (7.4-10.4); MONOCYTE # 1.2 10^3/ul (0.3-0.9); MONOCYTES % 14.1 % (0.0-11.0); NEUTROPHIL # 5.8 10^3/ul (1.6-7.5); NEUTROPHILS % 70.7 % (39.0-77.0); NUCLEATED RED BLOOD CELLS% 0.2 /100WBC (0.0-0.0); PLATELET COUNT 215 10^3/UL (140-415); RED BLOOD COUNT 3.08 10^6/ul (4.70-6.10); RED CELL DISTRIBUTION WIDTH 19.2 % (11.5-14.5)
[2019-06-01 09:17] LABS: WHITE BLOOD COUNT 8.2 10^3/ul (4.8-10.8)
[2019-06-01 09:50] LABS: ANION GAP 1 (5-13); BLOOD UREA NITROGEN 29 mg/dl (7-20); CALCIUM 8.5 mg/dl (8.4-10.2); CARBON DIOXIDE 34 mmol/L (21-31); CHLORIDE 109 mmol/L (97-110); GLUCOSE 154 mg/dl (70-220); MAGNESIUM 2.5 mg/dl (1.7-2.5); PHOSPHORUS 1.6 mg/dl (2.5-4.9); POTASSIUM 3.7 mmol/L (3.5-5.1); SODIUM 144 mmol/L (135-144)
[2019-06-01] MEDS: COLLAGENASE 5 GM (UD JAR) TOP ×2 (09:54→21:35)
[2019-06-01 10:28] LABS: IRON 18 ug/dl (35-150)
[2019-06-01 10:37] LABS: % IRON SATURATION 7 % SAT (22-52); TOTAL IRON BINDING CAPACITY 241 ug/dl (241-421)
[2019-06-01 13:22] LABS: FOLATE > 20.0 ng/ml (2.8-20.0)
[2019-06-01] MEDS: TAMSULOSIN (SR) 0.4 MG CAP PO (21:36)
[2019-06-02] MEDS: VANCOMYCIN 1.25 GM/NS 250 ML 250 ML IVPB (08:10)
[2019-06-02] MEDS: CEFEPIME 1GM/50 ML (PMX) 50 ML IVPB ×2 (08:11→21:18)
[2019-06-02] MEDS: DOCUSATE SODIUM 10 MG/ML (10ML CUP) GTB ×2 (08:12→21:09)
[2019-06-02] MEDS: COLLAGENASE 5 GM (UD JAR) TOP ×2 (08:12→21:16)
[2019-06-02] MEDS: LEVETIRACETAM (100 MG/ML) 5ML CUP GTB ×2 (08:12→21:11)
[2019-06-02] MEDS: NYSTATIN 15 GM POWDER BTL TOP ×2 (08:13→21:17)
[2019-06-02] MEDS: RANITIDINE 150 MG TAB GTB ×2 (08:14→21:12)
[2019-06-02] MEDS: NEUTRA-PHOS 250 MG PACKET GTB ×2 (08:14→21:18)
[2019-06-02] MEDS: PILOCARPINE 5 MG TAB GTB ×3 (08:14→21:13)
[2019-06-02] MEDS: CLOBETASOL 0.05% 15 GM OINT TOP ×4 (08:14→21:17)
[2019-06-02] MEDS: SILVER SULFADIAZINE 1% 25 GM CR TOP (08:14)
[2019-06-02] MEDS: METOPROLOL 50 MG TAB GTB ×2 (08:15→21:14)
[2019-06-02] MEDS: FINASTERIDE 5 MG TAB PO (08:15)
[2019-06-02] MEDS: BACLOFEN 10 MG TAB GTB ×2 (08:15→21:16)
[2019-06-02] MEDS: LISINOPRIL 20 MG TAB GTB (08:15)
[2019-06-02] MEDS: AMLODIPINE 5 MG TAB GTB ×2 (08:15→21:13)
[2019-06-02] MEDS: ZINC SULFATE 220 MG CAP GTB (08:15)
[2019-06-02] MEDS: MEMANTINE 5 MG TAB GTB ×2 (08:16→21:13)
[2019-06-02] MEDS: POLYETHYLENE GLYCOL 17 GM PACKET GTB (08:18)
[2019-06-02] MEDS: ENOXAPARIN 30 MG/0.3 ML SYG SC (08:20)
[2019-06-02 08:42] LABS: ADD MAN DIFF? NO
[2019-06-02 08:56] LABS: WHITE BLOOD COUNT 10.4 10^3/ul (4.8-10.8)
[2019-06-02 08:56] LABS: ABNORMAL IP MESSAGE 1; BASOPHILS % 0.4 % (0.0-2.0); EOSINOPHILS # 0.7 10^3/ul (0.0-0.5); EOSINOPHILS % 7.1 % (0.0-7.0); HEMATOCRIT 30.7 % (42.0-52.0); HEMOGLOBIN 9.3 g/dl (14.0-18.0); LYMPHOCYTES # 0.5 10^3/ul (0.8-2.9); LYMPHOCYTES % 5.1 % (15.0-51.0); MEAN CORPUSCULAR HEMOGLOBIN 29.2 pg (29.0-33.0); MEAN CORPUSCULAR HGB CONC 30.3 g/dl (32.0-37.0); MEAN CORPUSCULAR VOLUME 96.5 fl (82.0-101.0); MEAN PLATELET VOLUME 11.8 fl (7.4-10.4); MONOCYTE # 1.5 10^3/ul (0.3-0.9); MONOCYTES % 14.6 % (0.0-11.0); NEUTROPHIL # 7.5 10^3/ul (1.6-7.5); NEUTROPHILS % 72.2 % (39.0-77.0); PLATELET COUNT 234 10^3/UL (140-415); POSITIVE DIFF @See below; RED BLOOD COUNT 3.18 10^6/ul (4.70-6.10); RED CELL DISTRIBUTION WIDTH 18.6 % (11.5-14.5)
[2019-06-02 09:19] LABS: ANION GAP 1 (5-13); BLOOD UREA NITROGEN 26 mg/dl (7-20); CALCIUM 8.7 mg/dl (8.4-10.2); CARBON DIOXIDE 33 mmol/L (21-31); CHLORIDE 107 mmol/L (97-110); CREATININE 0.37 mg/dl (0.61-1.24); GLUCOSE 157 mg/dl (70-220); MAGNESIUM 2.5 mg/dl (1.7-2.5); PHOSPHORUS 1.6 mg/dl (2.5-4.9); POTASSIUM 3.9 mmol/L (3.5-5.1); SODIUM 141 mmol/L (135-144)
[2019-06-02] MEDS: SOD FERRIC GLUC COMPLX 125 MG in SOD CHLORIDE 0.9% 100 ML IVPB (13:04)
[2019-06-02] MEDS: TAMSULOSIN (SR) 0.4 MG CAP PO (21:13)
[2019-06-03] MEDS: ALBUTEROL 0.083% (NEB) 2.5 MG/3 ML AMP HHN ×2 (05:01→21:57)
[2019-06-03 07:36] LABS: ADD MAN DIFF? NO
[2019-06-03 07:48] LABS: WHITE BLOOD COUNT 9.1 10^3/ul (4.8-10.8)
[2019-06-03 07:48] LABS: BASOPHILS % 0.4 % (0.0-2.0); EOSINOPHILS # 0.8 10^3/ul (0.0-0.5); HEMATOCRIT 30.5 % (42.0-52.0); HEMOGLOBIN 9.1 g/dl (14.0-18.0); LYMPHOCYTES # 0.8 10^3/ul (0.8-2.9); LYMPHOCYTES % 8.6 % (15.0-51.0); MEAN CORPUSCULAR HEMOGLOBIN 28.9 pg (29.0-33.0); MEAN CORPUSCULAR HGB CONC 29.8 g/dl (32.0-37.0); MEAN CORPUSCULAR VOLUME 96.8 fl (82.0-101.0); MEAN PLATELET VOLUME 11.7 fl (7.4-10.4); MONOCYTE # 1.3 10^3/ul (0.3-0.9); MONOCYTES % 14.1 % (0.0-11.0); NEUTROPHILS % 66.6 % (39.0-77.0); NUCLEATED RED BLOOD CELLS% 0.3 /100WBC (0.0-0.0); PLATELET COUNT 222 10^3/UL (140-415); RED BLOOD COUNT 3.15 10^6/ul (4.70-6.10); RED CELL DISTRIBUTION WIDTH 18.7 % (11.5-14.5)
[2019-06-03 08:38] LABS: ANION GAP 4 (5-13); BLOOD UREA NITROGEN 27 mg/dl (7-20); CALCIUM 8.7 mg/dl (8.4-10.2); CARBON DIOXIDE 31 mmol/L (21-31); CHLORIDE 104 mmol/L (97-110); CREATININE 0.36 mg/dl (0.61-1.24); GLUCOSE 162 mg/dl (70-220); MAGNESIUM 2.3 mg/dl (1.7-2.5); PHOSPHORUS 1.8 mg/dl (2.5-4.9); POTASSIUM 3.9 mmol/L (3.5-5.1); SODIUM 139 mmol/L (135-144)
[2019-06-03] MEDS: COLLAGENASE 5 GM (UD JAR) TOP ×4 (09:00→21:00)
[2019-06-03] MEDS: DOCUSATE SODIUM 10 MG/ML (10ML CUP) GTB ×2 (09:25→21:29)
[2019-06-03] MEDS: CEFEPIME 1GM/50 ML (PMX) 50 ML IVPB ×2 (09:25→21:33)
[2019-06-03] MEDS: MEMANTINE 5 MG TAB GTB ×2 (09:25→21:38)
[2019-06-03] MEDS: LEVETIRACETAM (100 MG/ML) 5ML CUP GTB ×2 (09:25→21:29)
[2019-06-03] MEDS: FINASTERIDE 5 MG TAB PO (09:25)
[2019-06-03] MEDS: PILOCARPINE 5 MG TAB GTB ×3 (09:26→21:37)
[2019-06-03] MEDS: RANITIDINE 150 MG TAB GTB ×2 (09:26→21:39)
[2019-06-03] MEDS: ZINC SULFATE 220 MG CAP GTB (09:26)
[2019-06-03] MEDS: POLYETHYLENE GLYCOL 17 GM PACKET GTB (09:26)
[2019-06-03] MEDS: BACLOFEN 10 MG TAB GTB ×2 (09:26→21:39)
[2019-06-03] MEDS: NEUTRA-PHOS 250 MG PACKET GTB ×2 (09:26→21:31)
[2019-06-03] MEDS: AMLODIPINE 5 MG TAB GTB ×2 (09:27→21:40)
[2019-06-03] MEDS: METOPROLOL 50 MG TAB GTB ×2 (09:28→21:38)
[2019-06-03] MEDS: LISINOPRIL 20 MG TAB GTB (09:29)
[2019-06-03] MEDS: VANCOMYCIN 1.25 GM/NS 250 ML 250 ML IVPB (09:31)
[2019-06-03] MEDS: SILVER SULFADIAZINE 1% 25 GM CR TOP ×2 (09:32→14:09)
[2019-06-03] MEDS: CLOBETASOL 0.05% 15 GM OINT TOP ×4 (09:32→21:41)
[2019-06-03] MEDS: NYSTATIN 15 GM POWDER BTL TOP ×2 (09:33→21:40)
[2019-06-03] MEDS: ENOXAPARIN 30 MG/0.3 ML SYG SC (09:41)
[2019-06-03] MEDS: SOD FERRIC GLUC COMPLX 125 MG in SOD CHLORIDE 0.9% 100 ML IVPB (14:08)
[2019-06-03] MEDS: TAMSULOSIN (SR) 0.4 MG CAP PO (21:39)
[2019-06-04] MEDS: ALBUTEROL 0.083% (NEB) 2.5 MG/3 ML AMP HHN ×3 (05:35→23:04)
[2019-06-04 08:15] LABS: VANCOMYCIN,TROUGH 13.1 ug/ml (10.0-20.0)
[2019-06-04] MEDS: COLLAGENASE 5 GM (UD JAR) TOP ×2 (09:00→21:00)
[2019-06-04] MEDS: PILOCARPINE 5 MG TAB GTB ×3 (09:12→21:18)
[2019-06-04] MEDS: RANITIDINE 150 MG TAB GTB ×2 (09:12→21:16)
[2019-06-04] MEDS: BACLOFEN 10 MG TAB GTB ×2 (09:12→21:19)
[2019-06-04] MEDS: LISINOPRIL 20 MG TAB GTB (09:12)
[2019-06-04] MEDS: DOCUSATE SODIUM 10 MG/ML (10ML CUP) GTB ×2 (09:13→21:20)
[2019-06-04] MEDS: LEVETIRACETAM (100 MG/ML) 5ML CUP GTB ×2 (09:13→21:19)
[2019-06-04] MEDS: CEFEPIME 1GM/50 ML (PMX) 50 ML IVPB ×2 (09:13→21:12)
[2019-06-04] MEDS: POLYETHYLENE GLYCOL 17 GM PACKET GTB (09:13)
[2019-06-04] MEDS: METOPROLOL 50 MG TAB GTB ×2 (09:13→21:18)
[2019-06-04] MEDS: NEUTRA-PHOS 250 MG PACKET GTB ×2 (09:14→21:20)
[2019-06-04] MEDS: SILVER SULFADIAZINE 1% 25 GM CR TOP (09:14)
[2019-06-04] MEDS: AMLODIPINE 5 MG TAB GTB ×2 (09:14→21:19)
[2019-06-04] MEDS: ZINC SULFATE 220 MG CAP GTB (09:14)
[2019-06-04] MEDS: FINASTERIDE 5 MG TAB PO (09:14)
[2019-06-04] MEDS: NYSTATIN 15 GM POWDER BTL TOP ×2 (09:14→21:21)
[2019-06-04] MEDS: VANCOMYCIN 1.25 GM/NS 250 ML 250 ML IVPB (09:14)
[2019-06-04] MEDS: MEMANTINE 5 MG TAB GTB ×2 (09:14→21:17)
[2019-06-04] MEDS: CLOBETASOL 0.05% 15 GM OINT TOP ×4 (09:15→21:22)
[2019-06-04] MEDS: ENOXAPARIN 30 MG/0.3 ML SYG SC (11:08)
[2019-06-04] MEDS: SOD FERRIC GLUC COMPLX 125 MG in SOD CHLORIDE 0.9% 100 ML IVPB (13:25)
[2019-06-04] MEDS: TAMSULOSIN (SR) 0.4 MG CAP PO (21:17)
[2019-06-05] MEDS: ALBUTEROL 0.083% (NEB) 2.5 MG/3 ML AMP HHN (05:10)
[2019-06-05] MEDS: CEFEPIME 1GM/50 ML (PMX) 50 ML IVPB ×2 (08:54→21:36)
[2019-06-05] MEDS: BACLOFEN 10 MG TAB GTB ×2 (08:55→21:37)
[2019-06-05] MEDS: DOCUSATE SODIUM 10 MG/ML (10ML CUP) GTB ×2 (08:55→21:35)
[2019-06-05] MEDS: LEVETIRACETAM (100 MG/ML) 5ML CUP GTB ×2 (08:55→21:35)
[2019-06-05] MEDS: POLYETHYLENE GLYCOL 17 GM PACKET GTB (08:56)
[2019-06-05] MEDS: AMLODIPINE 5 MG TAB GTB ×2 (08:56→21:37)
[2019-06-05] MEDS: METOPROLOL 50 MG TAB GTB ×2 (08:56→21:37)
[2019-06-05] MEDS: MEMANTINE 5 MG TAB GTB ×2 (08:56→21:37)
[2019-06-05] MEDS: NEUTRA-PHOS 250 MG PACKET GTB ×2 (08:56→21:36)
[2019-06-05] MEDS: RANITIDINE 150 MG TAB GTB ×2 (08:57→21:37)
[2019-06-05] MEDS: PILOCARPINE 5 MG TAB GTB ×3 (08:57→21:36)
[2019-06-05] MEDS: FINASTERIDE 5 MG TAB PO (08:58)
[2019-06-05] MEDS: LISINOPRIL 20 MG TAB GTB (08:58)
[2019-06-05] MEDS: ZINC SULFATE 220 MG CAP GTB (08:58)
[2019-06-05] MEDS: NYSTATIN 15 GM POWDER BTL TOP ×2 (08:58→21:38)
[2019-06-05] MEDS: COLLAGENASE 5 GM (UD JAR) TOP ×2 (08:58→21:38)
[2019-06-05] MEDS: SILVER SULFADIAZINE 1% 25 GM CR TOP (08:59)
[2019-06-05] MEDS: CLOBETASOL 0.05% 15 GM OINT TOP ×4 (08:59→21:38)
[2019-06-05] MEDS: ENOXAPARIN 30 MG/0.3 ML SYG SC (09:56)
[2019-06-05] MEDS: VANCOMYCIN 1.25 GM/NS 250 ML 250 ML IVPB (10:00)
[2019-06-05] MEDS: SOD FERRIC GLUC COMPLX 125 MG in SOD CHLORIDE 0.9% 100 ML IVPB (13:39)
[2019-06-05] MEDS: TAMSULOSIN (SR) 0.4 MG CAP PO (21:37)
[2019-06-06 07:24] LABS: ADD MAN DIFF? NO
[2019-06-06 07:27] LABS: WHITE BLOOD COUNT 7.2 10^3/ul (4.8-10.8)
[2019-06-06 07:27] LABS: ABNORMAL IP MESSAGE 1; BASOPHILS % 0.6 % (0.0-2.0); EOSINOPHILS # 0.6 10^3/ul (0.0-0.5); EOSINOPHILS % 8.3 % (0.0-7.0); HEMATOCRIT 28.5 % (42.0-52.0); HEMOGLOBIN 8.7 g/dl (14.0-18.0); LYMPHOCYTES # 0.5 10^3/ul (0.8-2.9); LYMPHOCYTES % 7.5 % (15.0-51.0); MEAN CORPUSCULAR HEMOGLOBIN 29.3 pg (29.0-33.0); MEAN CORPUSCULAR HGB CONC 30.5 g/dl (32.0-37.0); MEAN PLATELET VOLUME 11.5 fl (7.4-10.4); MONOCYTE # 1.3 10^3/ul (0.3-0.9); NEUTROPHIL # 4.7 10^3/ul (1.6-7.5); NEUTROPHILS % 64.6 % (39.0-77.0); PLATELET COUNT 260 10^3/UL (140-415); POSITIVE DIFF @See below; RED BLOOD COUNT 2.97 10^6/ul (4.70-6.10); RED CELL DISTRIBUTION WIDTH 19.4 % (11.5-14.5)
[2019-06-06] MEDS: VANCOMYCIN 1.25 GM/NS 250 ML 250 ML IVPB (07:37)
[2019-06-06] MEDS: POLYETHYLENE GLYCOL 17 GM PACKET GTB (07:38)
[2019-06-06] MEDS: DOCUSATE SODIUM 10 MG/ML (10ML CUP) GTB ×2 (07:38→21:00)
[2019-06-06 07:58] LABS: ANION GAP 4 (5-13); BLOOD UREA NITROGEN 24 mg/dl (7-20); CALCIUM 8.6 mg/dl (8.4-10.2); CARBON DIOXIDE 33 mmol/L (21-31); CHLORIDE 97 mmol/L (97-110); CREATININE 0.39 mg/dl (0.61-1.24); GLUCOSE 150 mg/dl (70-220); MAGNESIUM 2.1 mg/dl (1.7-2.5); PHOSPHORUS 2.3 mg/dl (2.5-4.9); POTASSIUM 4.1 mmol/L (3.5-5.1); SODIUM 134 mmol/L (135-144)
[2019-06-06] MEDS: LEVETIRACETAM (100 MG/ML) 5ML CUP GTB ×2 (08:44→21:12)
[2019-06-06] MEDS: BACLOFEN 10 MG TAB GTB ×2 (08:45→21:12)
[2019-06-06] MEDS: METOPROLOL 50 MG TAB GTB ×2 (08:45→21:14)
[2019-06-06] MEDS: MEMANTINE 5 MG TAB GTB ×2 (08:45→21:12)
[2019-06-06] MEDS: LISINOPRIL 20 MG TAB GTB (08:46)
[2019-06-06] MEDS: ZINC SULFATE 220 MG CAP GTB (08:46)
[2019-06-06] MEDS: PILOCARPINE 5 MG TAB GTB ×3 (08:46→21:12)
[2019-06-06] MEDS: AMLODIPINE 5 MG TAB GTB ×2 (08:46→21:13)
[2019-06-06] MEDS: RANITIDINE 150 MG TAB GTB ×2 (08:46→21:13)
[2019-06-06] MEDS: NEUTRA-PHOS 250 MG PACKET GTB ×2 (08:46→21:12)
[2019-06-06] MEDS: NYSTATIN 15 GM POWDER BTL TOP ×2 (08:47→21:14)
[2019-06-06] MEDS: COLLAGENASE 5 GM (UD JAR) TOP ×2 (08:47→21:14)
[2019-06-06] MEDS: SILVER SULFADIAZINE 1% 25 GM CR TOP (08:47)
[2019-06-06] MEDS: CLOBETASOL 0.05% 15 GM OINT TOP ×4 (08:47→21:14)
[2019-06-06] MEDS: FINASTERIDE 5 MG TAB PO (08:47)
[2019-06-06] MEDS: CEFEPIME 1GM/50 ML (PMX) 50 ML IVPB (08:47)
[2019-06-06] MEDS: ENOXAPARIN 30 MG/0.3 ML SYG SC (08:53)
[2019-06-06] MEDS ORDERED: PENDING SANTYL ORDER FOR WOUND CARE XX (11:00)
[2019-06-06] MEDS: SOD FERRIC GLUC COMPLX 125 MG in SOD CHLORIDE 0.9% 100 ML IVPB (12:04)
[2019-06-06] MEDS: TAMSULOSIN (SR) 0.4 MG CAP PO (21:12)
[2019-06-07 08:16] LABS: ADD MAN DIFF? NO
[2019-06-07 08:20] LABS: ABNORMAL IP MESSAGE 1; BASOPHILS % 0.3 % (0.0-2.0); EOSINOPHILS # 0.5 10^3/ul (0.0-0.5); HEMATOCRIT 32.2 % (42.0-52.0); HEMOGLOBIN 9.7 g/dl (14.0-18.0); LYMPHOCYTES # 0.5 10^3/ul (0.8-2.9); MEAN CORPUSCULAR HGB CONC 30.1 g/dl (32.0-37.0); MEAN CORPUSCULAR VOLUME 96.1 fl (82.0-101.0); MEAN PLATELET VOLUME 11.7 fl (7.4-10.4); MONOCYTE # 1.3 10^3/ul (0.3-0.9); MONOCYTES % 17.3 % (0.0-11.0); NEUTROPHIL # 4.9 10^3/ul (1.6-7.5); NEUTROPHILS % 66.4 % (39.0-77.0); PLATELET COUNT 291 10^3/UL (140-415); POSITIVE DIFF @See below; RED BLOOD COUNT 3.35 10^6/ul (4.70-6.10); RED CELL DISTRIBUTION WIDTH 19.7 % (11.5-14.5)
[2019-06-07 08:20] LABS: WHITE BLOOD COUNT 7.4 10^3/ul (4.8-10.8)
[2019-06-07 08:42] LABS: ANION GAP 5 (5-13); BLOOD UREA NITROGEN 23 mg/dl (7-20); CARBON DIOXIDE 31 mmol/L (21-31); CHLORIDE 98 mmol/L (97-110); CREATININE 0.38 mg/dl (0.61-1.24); GLUCOSE 151 mg/dl (70-220); PHOSPHORUS 2.2 mg/dl (2.5-4.9); POTASSIUM 3.9 mmol/L (3.5-5.1); SODIUM 134 mmol/L (135-144)
[2019-06-07] MEDS: POLYETHYLENE GLYCOL 17 GM PACKET GTB (09:00)
[2019-06-07] MEDS: DOCUSATE SODIUM 10 MG/ML (10ML CUP) GTB ×2 (09:00→20:14)
[2019-06-07] MEDS: METOPROLOL 50 MG TAB GTB ×2 (09:12→20:16)
[2019-06-07] MEDS: MEMANTINE 5 MG TAB GTB ×2 (09:12→20:14)
[2019-06-07] MEDS: BACLOFEN 10 MG TAB GTB ×2 (09:12→20:15)
[2019-06-07] MEDS: LEVETIRACETAM (100 MG/ML) 5ML CUP GTB ×2 (09:12→20:14)
[2019-06-07] MEDS: AMLODIPINE 5 MG TAB GTB ×2 (09:13→20:16)
[2019-06-07] MEDS: NEUTRA-PHOS 250 MG PACKET GTB ×2 (09:13→20:15)
[2019-06-07] MEDS: FINASTERIDE 5 MG TAB PO (09:20)
[2019-06-07] MEDS: PILOCARPINE 5 MG TAB GTB ×3 (09:21→20:15)
[2019-06-07] MEDS: RANITIDINE 150 MG TAB GTB ×2 (09:21→20:14)
[2019-06-07] MEDS: ZINC SULFATE 220 MG CAP GTB (09:21)
[2019-06-07] MEDS: LISINOPRIL 20 MG TAB GTB (09:22)
[2019-06-07] MEDS: COLLAGENASE 5 GM (UD JAR) TOP ×2 (09:23→20:15)
[2019-06-07] MEDS: NYSTATIN 15 GM POWDER BTL TOP ×2 (09:23→20:16)
[2019-06-07] MEDS: SILVER SULFADIAZINE 1% 25 GM CR TOP (09:23)
[2019-06-07] MEDS: CLOBETASOL 0.05% 15 GM OINT TOP ×4 (09:23→20:15)
[2019-06-07] MEDS: ENOXAPARIN 30 MG/0.3 ML SYG SC (09:29)
[2019-06-07] MEDS: TAMSULOSIN (SR) 0.4 MG CAP PO (20:14)
== END 2019-06-07 23:00 | disposition home or self-care (01) | DRG 871 ==
LOC: E/R 09:51 → TEL 10:41
PROVIDERS: Internal Medicine
PROC: 3E0F7GC Introduction of Other Therapeutic Substance into Respiratory Tract, Via Natural or Artificial Opening (ICD-10-PCS; 2019-05-28)
PROC: 30233N1 Transfusion of Nonautologous Red Blood Cells into Peripheral Vein, Percutaneous Approach (ICD-10-PCS; principal; 2019-05-29)
DX: A41.9 Sepsis, unspecified organism (principal); L89.153 Pressure ulcer of sacral region, stage 3; L89.44 Pressure ulcer of contiguous site of back, buttock and hip, stage 4; J69.0 Pneumonitis due to inhalation of food and vomit; J96.01 Acute respiratory failure with hypoxia; G93.40 Encephalopathy, unspecified; E87.2 Acidosis; Z93.1 Gastrostomy status; R13.10 Dysphagia, unspecified; E11.9 Type 2 diabetes mellitus without complications; F03.90 Unspecified dementia, unspecified severity, without behavioral disturbance, psychotic disturbance, mood disturbance, and anxiety; G40.909 Epilepsy, unspecified, not intractable, without status epilepticus; D64.9 Anemia, unspecified; F01.50 Vascular dementia, unspecified severity, without behavioral disturbance, psychotic disturbance, mood disturbance, and anxiety; N40.0 Benign prostatic hyperplasia without lower urinary tract symptoms; I10 Essential (primary) hypertension; I25.10 Atherosclerotic heart disease of native coronary artery without angina pectoris; Z79.4 Long term (current) use of insulin
CPT/HCPCS: 36415; 36430; 71045; 80048; 80053; 80202; 81001; 81003; 82043; 82270; 82607; 82728; 82746; 83540; 83605; 83735; 84100; 84155; 84300; 84484; 85014; 85018; 85025; 85045; 85610; 85730; 86850; 86900; 86901; 86920; 87040-91; 87045; 87086; 93005; 93306; 94640; 94664; 96374; 97162; 99285-25

== ENCOUNTER 2019-07-11 13:40 | Emergency (ER) | payer MEDICARE, OTHER ==
[2019-07-11] MEDS: ALBUTEROL 0.5% (NEB) 2.5 MG/0.5 ML AMP INH (14:09)
[2019-07-11] MEDS: IPRATROPIUM (NEB) 0.5 MG/2.5 ML AMP INH (14:09)
[2019-07-11] MEDS: SODIUM CHLORIDE 0.9% 1L BAG IV* (14:23)
[2019-07-11] MEDS: CEFTRIAXONE 1 GM/50 ML (PMX) 50 ML IVPB (14:23)
[2019-07-11] MEDS: ACETAMINOPHEN 650 MG SUPP PR (14:24)
== END 2019-07-11 16:09 | disposition home or self-care (01) ==
LOC: E/R 13:40
DX: G93.40 Encephalopathy, unspecified (principal); J44.1 Chronic obstructive pulmonary disease with (acute) exacerbation; E86.0 Dehydration; L89.229 Pressure ulcer of left hip, unspecified stage; I10 Essential (primary) hypertension; E11.9 Type 2 diabetes mellitus without complications; Z86.73 Personal history of transient ischemic attack (TIA), and cerebral infarction without residual deficits
CPT/HCPCS: 36415; 71045; 80053; 83605; 83690; 84484; 85025; 85610; 85730; 87040-91; 93005; 94644; 96374; 99285-25